=== PATIENT | male | born 1960 | race American Indian/Alaskan Native ===

== ENCOUNTER 2017-03-11 09:19 | Outpatient (CLI) | payer BC ==
--- NOTE | 2017-03-11 14:10 | Cat Scan Report ---
CT ABDOMEN PELVIS WITHOUT CONTRAST: HISTORY: Prostate cancer. COMPARISON: none. TECHNIQUE: Helical CT in 1.25mm intervals without IV contrast. Sagittal and coronal reconstructions. FINDINGS: Lung bases: Normal. Liver: Mild fatty infiltration is identified. No focal mass or surface nodularity. Biliary system: Normal. Pancreas: Normal. Spleen: Normal. Kidneys/ureters/bladder: Normal. Adrenal glands: Normal. Aorta: Normal. Intestines: Normal. Appendix: Normal. Pelvic viscera: The prostate gland measures 5.0 cm in diameter. No obvious mass or nodule. Ascites: None. Adenopathy: None. Musculoskeletal: There is mild levoscoliosis of the lumbar spine with mild degenerative changes. No suspicious blastic bony lesion is appreciated. IMPRESSION: No evidence for metastatic disease to the abdomen or pelvis. Mild fatty infiltration of the liver. Mild levoscoliosis of the lumbar spine with degenerative changes.
--- NOTE | 2017-03-11 14:11 | Nuclear Medicine Report ---
BONE SCAN: History: Prostate cancer. Comparison: No previous bone scan. Correlation is made with a CT of the abdomen and pelvis performed the same day. After injection of isotope, gamma camera imaging of the bony system was done. There is a normal uptake of isotope throughout the bony structures without areas of significantly increased or decreased uptake. Normal uptake in the urinary system is seen. IMPRESSION: Negative bone scan. No evidence for metastatic disease to the bones.
== END 2017-03-11 09:20 | disposition home or self-care (01) ==
LOC: NM 09:19
PROVIDERS: ATTEND Urology
DX: C61 Malignant neoplasm of prostate (principal); K76.0 Fatty (change of) liver, not elsewhere classified; M41.86 Other forms of scoliosis, lumbar region; M47.896 Other spondylosis, lumbar region
CPT/HCPCS: 74176; 78306; A9503